=== PATIENT | female | born 1985 | race American Indian/Alaskan Native ===

== ENCOUNTER 2016-10-20 11:40 | Emergency (ER) | payer MEDICAID, OTHER ==
[~2016-10-20] VITALS: Ht 160 cm; Wt 114.0 kg
[~2016-10-20 11:40] MED LIST: HYDR-3240 PO
[2016-10-20] MEDS ORDERED: LORazepam 2 MG/ML, 1ML IVPush ONE (12:30)
[2016-10-20] MEDS ORDERED: SODIUM CHLORIDE 0.9% 1,000ML IVBOLUS ONE (12:30)
[2016-10-20] MEDS ORDERED: SODIUM CHLORIDE FLUSH 10ML SYR IVF ONE (12:30)
[2016-10-20 12:36] LABS: HEMATOCRIT 39.3 % (34.6-47.8); HEMOGLOBIN 13.1 g/dL (11.7-16.4); WHITE BLOOD COUNT 6.7 x10^3/uL (3.4-10)
[2016-10-20 12:48] LABS: BLOOD UREA NITROGEN 11 mg/dL (7-18)
[2016-10-20 12:55] LABS: IS PT STATUS REG ER OR PRE ER? YES
[2016-10-20] MEDS ORDERED: LORazepam 2 MG/ML, 1ML ONE (13:10)
[2016-10-20] MEDS ORDERED: MAALOX/HYOSCYAMINE/LIDOCAINE 45 ML BTL PO ONE (14:00)
[2016-10-20] MEDS ORDERED: ONDANSETRON 2MG/ML, 2ML IVPush ONE (14:00)
[2016-10-20] MEDS ORDERED: ONDANSETRON 2MG/ML, 2ML ONE (14:09)
[2016-10-20] MEDS ORDERED: MAALOX/HYOSCYAMINE/LIDOCAINE 45 ML BTL ONE (14:09)
[2016-10-20 14:47] VITALS: BP 115/74
== END 2016-10-20 15:31 | disposition home or self-care (01) ==
LOC: ED 14:06
DX: K29.01 Acute gastritis with bleeding (principal); F41.9 Anxiety disorder, unspecified
CPT/HCPCS: 36415; 71010; 80048; 82040; 84484; 84703; 85025; 85379; 93005; 96361; 96374; 96375; 99285; J2060; J2405; J7030

== ENCOUNTER 2017-02-27 10:33 | Emergency (ER) | payer OTHER ==
[~2017-02-27] VITALS: Ht 160 cm; Wt 109.1 kg
[2017-02-27] MEDS ORDERED: KETOROLAC 30 MG/1 ML IM ONE (12:30)
[2017-02-27 12:49] LABS: RAPID INFLUENZA A Negative (Negative); RAPID INFLUENZA B Negative (Negative)
[2017-02-27 12:51] LABS: ALBUMIN 3.4 g/dL (3.4-5.0); ANION GAP 10 mmol/L (5-15); CALCIUM 8.4 mg/dL (8.5-10.1); CHLORIDE 105 mmol/L (98-107); CREATININE 0.48 mg/dL (0.55-1.02)
[2017-02-27 12:53] LABS: BASOPHILS # (AUTO) 0.01 x10^3/uL (0-0.1); BASOPHILS % (AUTO) 0 % (0-1); EOSINOPHILS # (AUTO) 0.02 x10^3/uL (0-0.4); EOSINOPHILS % (AUTO) 1 % (1-7); LYMPHOCYTES # (AUTO) 0.75 x10^3/uL (1-3.4); LYMPHOCYTES % (AUTO) 20 % (22-44); MD NO; MEAN CORPUSCULAR HEMOGLOBIN 31.2 pg (27.0-34.8); MEAN CORPUSCULAR HGB CONC 33.8 g/dL (32.4-35.8); MEAN CORPUSCULAR VOLUME 92.1 fL (80-100); MEAN PLATELET VOLUME 8.4 fL (7.4-10.4); MONOCYTES # (AUTO) 0.17 x10^3/uL (0.2-0.8); MONOCYTES % (AUTO) 5 % (2-9); NEUTROPHILS # (AUTO) 2.82 x10^3/uL (1.8-6.8); NEUTROPHILS % (AUTO) 75 % (42-75); PLATELET COUNT 139 x10^3/uL (130-400); RED BLOOD COUNT 4.34 x10^6/uL (3.82-5.3); RED CELL DISTRIBUTION WIDTH 16.2 % (9.6-15.2)
[2017-02-27] MEDS ORDERED: KETOROLAC 30 MG/1 ML ONE (13:09)
[2017-02-27 13:14] VITALS: BP 119/75
== END 2017-02-27 13:58 | disposition home or self-care (01) ==
LOC: ED 13:24
DX: B34.9 Viral infection, unspecified (principal); M94.0 Chondrocostal junction syndrome [Tietze]; Z90.49 Acquired absence of other specified parts of digestive tract
CPT/HCPCS: 36415; 71046; 80048; 82040; 85025; 87400; 93005; 96372; 99285; J1885

== ENCOUNTER 2017-12-10 15:08 | Inpatient (IN) | payer MEDICAID, OTHER ==
[~2017-12-10] VITALS: Ht 160 cm; Wt 126.9 kg
[2017-12-10] MEDS ORDERED: SODIUM CHLORIDE FLUSH 10ML SYR IVF ONE (15:30)
[2017-12-10] MEDS ORDERED: FURO20TA3 PO (15:54)
[2017-12-10] MEDS ORDERED: NADO20TA PO (15:55)
[2017-12-10] MEDS ORDERED: LACT20SO13 PO (15:55)
[2017-12-10] MEDS ORDERED: OMEP10CA4 PO (15:56)
[2017-12-10] MEDS ORDERED: PHOS250T PO (15:56)
[2017-12-10] MEDS ORDERED: RIFA550T4 PO (15:58)
[2017-12-10] MEDS ORDERED: CHOL100015 PO (15:58)
[2017-12-10] MEDS ORDERED: SPIR25TA5 PO (15:59)
[2017-12-10 16:04] LABS: ALBUMIN 2.2 g/dL (3.4-5.0); ANION GAP 7 mmol/L (5-15); CALCIUM 8.5 mg/dL (8.5-10.1); CHLORIDE 109 mmol/L (98-107); INTERNATIONAL NORMALIZED RATIO 1.76 (0.93-1.1); PROTHROMBIN TIME 17.9 Seconds (9.6-11.5)
[2017-12-10 16:08] LABS: ALANINE AMINOTRANSFERASE 25 U/L (12-78); ALKALINE PHOSPHATASE 280 U/L (45-117); BILIRUBIN, DIRECT 4.8 mg/dL (0.1-0.2); BILIRUBIN,INDIRECT 1.5 mg/dL (0.0-2.0); BILIRUBIN,TOTAL 6.3 mg/dL (0.2-1.0); CREATININE 0.66 mg/dL (0.55-1.02); TOTAL PROTEIN 7.3 g/dL (6.4-8.2)
[2017-12-10 16:23] LABS: MEAN CORPUSCULAR HEMOGLOBIN 37.3 pg (27.0-34.8); MEAN CORPUSCULAR HGB CONC 33.2 g/dL (32.4-35.8); MEAN CORPUSCULAR VOLUME 112.2 fL (80-100); MEAN PLATELET VOLUME 9.1 fL (7.4-10.4); PLATELET COUNT 100 x10^3/uL (130-400); RED BLOOD COUNT 2.59 x10^6/uL (3.82-5.3); RED CELL DISTRIBUTION WIDTH 24.1 % (9.6-15.2)
[2017-12-10 16:41] LABS: MD YES
[2017-12-10 16:46] LABS: BAND#(MANUAL) 0.17 x10^3/uL; BANDS%(MANUAL) 2 % (0-7); BASOS#(MANUAL) 0.08 x10^3/uL (0-0.1); BASOS% (MANUAL) 1 % (0-1); EOS#(MANUAL) 0.08 x10^3/uL (0.0-0.4); EOS% (MANUAL) 1 % (1-7); LYMPH#(MANUAL) 1.83 x10^3/uL (1-3.4); LYMPHS% (MANUAL) 22 % (22-44); MONOS% (MANUAL) 6 % (2-9); SEG#(MANUAL) 5.64 x10^3/uL (1.8-6.8); SEGS% (MANUAL) 68 % (42-75)
[2017-12-10 16:48] LABS: ANISOCYTOSIS 2+; POLYCHROMASIA 1+
[2017-12-10 16:49] LABS: <PLATELET ESTIMATE> DECREASED; <PLT MORPHOLOGY> NORMAL PLT MORPH
[2017-12-10 16:52] LABS: HCG UR SG 1.009 (1.003-1.030)
[2017-12-10 17:00] LABS: MICROSCOPIC INDICATED
[2017-12-10] MEDS ORDERED: FUROSEMIDE 20 MG/2 ML IV ONE (17:00)
[2017-12-10 17:02] LABS: CULTURE INDICATED? YES
[2017-12-10] MEDS ORDERED: FUROSEMIDE 20 MG/2 ML ONE (17:18)
[2017-12-10 20:16] VITALS: BP 108/67
[2017-12-10] MEDS ORDERED: DOCUSATE 100 MG CAPSULE PO PRN (20:30)
[2017-12-10] MEDS ORDERED: ACETAMINOPHEN 325 MG TABLET PO PRN (20:30)
[2017-12-10] MEDS ORDERED: ONDANSETRON ODT 4 MG PO PRN (20:30)
[2017-12-10] MEDS ORDERED: DIPHENHYDRAMINE 25 MG CAPSULE PO PRN (20:30)
[2017-12-10] MEDS: ENOXAPARIN 40 MG/0.4 ML SQ SCH (22:29)
[2017-12-10] MEDS: OXYcodone IR 5MG TABLET PO PRN (22:29)
[2017-12-10] MEDS: RIFAXIMIN 550 MG TABLET PO SCH (22:29)
[2017-12-11 03:33] VITALS: BP 109/68
[2017-12-11 05:06] LABS: MEAN CORPUSCULAR HEMOGLOBIN 38.9 pg (27.0-34.8); MEAN CORPUSCULAR HGB CONC 34.2 g/dL (32.4-35.8); MEAN PLATELET VOLUME 8.9 fL (7.4-10.4); PLATELET COUNT 93 x10^3/uL (130-400); RED BLOOD COUNT 2.56 x10^6/uL (3.82-5.3); RED CELL DISTRIBUTION WIDTH 24.5 % (9.6-15.2)
[2017-12-11 05:18] LABS: ALBUMIN 2.2 g/dL (3.4-5.0); ANION GAP 7 mmol/L (5-15); CALCIUM 8.1 mg/dL (8.5-10.1); CHLORIDE 108 mmol/L (98-107)
[2017-12-11 05:23] LABS: ALANINE AMINOTRANSFERASE 27 U/L (12-78); ALKALINE PHOSPHATASE 223 U/L (45-117); BILIRUBIN,TOTAL 6.4 mg/dL (0.2-1.0); TOTAL PROTEIN 7.3 g/dL (6.4-8.2)
[2017-12-11] MEDS: METOPROLOL TARTRATE 25 MG TABLET PO SCH ×2 (05:23→17:52)
[2017-12-11 05:34] LABS: BASOPHILS # (AUTO) 0.04 x10^3/uL (0-0.1); BASOPHILS % (AUTO) 1 % (0-1); EOSINOPHILS # (AUTO) 0.25 x10^3/uL (0-0.4); EOSINOPHILS % (AUTO) 4 % (1-7); LYMPHOCYTES # (AUTO) 1.75 x10^3/uL (1-3.4); LYMPHOCYTES % (AUTO) 25 % (22-44); MD SCAN; MONOCYTES # (AUTO) 0.75 x10^3/uL (0.2-0.8); MONOCYTES % (AUTO) 11 % (2-9); NEUTROPHILS # (AUTO) 4.27 x10^3/uL (1.8-6.8); NEUTROPHILS % (AUTO) 61 % (42-75)
[2017-12-11] MEDS ORDERED: FUROSEMIDE 20 MG/2 ML IV SCH (07:30)
[2017-12-11 07:48] VITALS: BP 111/46
[2017-12-11] MEDS ORDERED: ERGOCALCIFEROL 50,000 UNIT CAPSULE PO SCH (09:00)
[2017-12-11] MEDS ORDERED: FUROSEMIDE 20 MG TABLET PO SCH (09:00)
[2017-12-11] MEDS: OMEPRAZOLE 20 MG CAPSULE.DR PO SCH (09:39)
[2017-12-11] MEDS: SPIRONOLACTONE 25 MG TABLET PO SCH (09:39)
[2017-12-11] MEDS: LACTULOSE 20 GM/30 ML UDC PO SCH (09:41)
[2017-12-11] MEDS: NEUTRA PHOS K 250 MG TABLET PO SCH (09:41)
[2017-12-11] MEDS: RIFAXIMIN 550 MG TABLET PO SCH ×2 (09:42→22:59)
[2017-12-11] MEDS: OXYcodone IR 5MG TABLET PO PRN ×2 (09:42→14:43)
[2017-12-11 17:41] VITALS: BP 116/69
[2017-12-11] MEDS: AMPICILLIN/SULBACTAM 1,500 MG in SODIUM CHLORIDE 0.9% 50 ML IV SCH (17:52)
[2017-12-11] MEDS: FUROSEMIDE 40 MG/4 ML IV SCH (17:52)
[2017-12-11] MEDS: GABAPENTIN 300 MG CAPSULE PO SCH (22:59)
[2017-12-11] MEDS: ENOXAPARIN 40 MG/0.4 ML SQ SCH (23:02)
[2017-12-12] MEDS: AMPICILLIN/SULBACTAM 1,500 MG in SODIUM CHLORIDE 0.9% 50 ML IV SCH ×4 (00:37→20:28)
[2017-12-12 03:45] VITALS: BP 94/53
[2017-12-12 04:52] LABS: MEAN CORPUSCULAR HGB CONC 33.9 g/dL (32.4-35.8); MEAN PLATELET VOLUME 9.4 fL (7.4-10.4); PLATELET COUNT 83 x10^3/uL (130-400); RED BLOOD COUNT 2.03 x10^6/uL (3.82-5.3); RED CELL DISTRIBUTION WIDTH 23.9 % (9.6-15.2)
[2017-12-12 05:00] LABS: ANION GAP 8 mmol/L (5-15); CALCIUM 8.1 mg/dL (8.5-10.1); CHLORIDE 109 mmol/L (98-107); CREATININE 0.76 mg/dL (0.55-1.02)
[2017-12-12 05:24] LABS: BASOPHILS # (AUTO) 0.04 x10^3/uL (0-0.1); BASOPHILS % (AUTO) 1 % (0-1); EOSINOPHILS # (AUTO) 0.19 x10^3/uL (0-0.4); EOSINOPHILS % (AUTO) 3 % (1-7); LYMPHOCYTES # (AUTO) 1.37 x10^3/uL (1-3.4); LYMPHOCYTES % (AUTO) 24 % (22-44); MD SCAN; MONOCYTES # (AUTO) 0.59 x10^3/uL (0.2-0.8); MONOCYTES % (AUTO) 10 % (2-9); NEUTROPHILS # (AUTO) 3.48 x10^3/uL (1.8-6.8); NEUTROPHILS % (AUTO) 61 % (42-75)
[2017-12-12] MEDS: METOPROLOL TARTRATE 25 MG TABLET PO SCH ×3 (06:16→18:09)
[2017-12-12 06:20] VITALS: BP 107/62
[2017-12-12 07:00] VITALS: BP 119/54
[2017-12-12] MEDS: OMEPRAZOLE 20 MG CAPSULE.DR PO SCH (09:00)
[2017-12-12] MEDS: GABAPENTIN 300 MG CAPSULE PO SCH ×3 (09:00→20:14)
[2017-12-12] MEDS: FUROSEMIDE 40 MG/4 ML IV SCH ×2 (09:00→16:20)
[2017-12-12] MEDS: LACTULOSE 20 GM/30 ML UDC PO SCH (09:01)
[2017-12-12] MEDS: NEUTRA PHOS K 250 MG TABLET PO SCH (09:01)
[2017-12-12] MEDS: RIFAXIMIN 550 MG TABLET PO SCH ×2 (09:01→20:14)
[2017-12-12] MEDS: SPIRONOLACTONE 25 MG TABLET PO SCH (09:14)
[2017-12-12 12:26] LABS: FREE T4 (FREE THYROXINE) 1.23 ng/dL (0.76-1.46); THYROID STIMULATING HORMONE 9.58 mIU/L (0.358-3.740)
[2017-12-12 14:10] LABS: OCCULT BLOOD NEGATIVE (NEGATIVE)
[2017-12-12] MEDS ORDERED: MAGNESIUM SULFATE PMX 2GM/50ML 50 ML IV ONE (14:30)
[2017-12-12 15:37] LABS: INTERNATIONAL NORMALIZED RATIO 1.69 (0.93-1.1); PROTHROMBIN TIME 17.2 Seconds (9.6-11.5)
[2017-12-12 18:11] VITALS: BP 93/52
[2017-12-12 19:20] VITALS: BP 101/60
[2017-12-12] MEDS: OXYcodone IR 5MG TABLET PO PRN (20:18)
[2017-12-13 01:58] VITALS: BP 101/61
[2017-12-13] MEDS: AMPICILLIN/SULBACTAM 1,500 MG in SODIUM CHLORIDE 0.9% 50 ML IV SCH ×4 (01:59→20:57)
[2017-12-13] MEDS: METOPROLOL TARTRATE 25 MG TABLET PO SCH ×2 (05:59→18:00)
[2017-12-13] MEDS: LEVOTHYROXINE 50 MCG TABLET PO SCH (05:59)
[2017-12-13 06:55] VITALS: BP 99/59
[2017-12-13] MEDS: FUROSEMIDE 40 MG/4 ML IV SCH ×2 (07:42→16:39)
[2017-12-13] MEDS: OMEPRAZOLE 20 MG CAPSULE.DR PO SCH (07:42)
[2017-12-13 08:52] LABS: ALANINE AMINOTRANSFERASE 23 U/L (12-78); ALBUMIN 1.8 g/dL (3.4-5.0); ANION GAP 8 mmol/L (5-15); CALCIUM 8.1 mg/dL (8.5-10.1); CHLORIDE 108 mmol/L (98-107); CREATININE 0.83 mg/dL (0.55-1.02); MEAN CORPUSCULAR HEMOGLOBIN 38.3 pg (27.0-34.8); MEAN CORPUSCULAR VOLUME 112.8 fL (80-100); RED BLOOD COUNT 2.03 x10^6/uL (3.82-5.3); RED CELL DISTRIBUTION WIDTH 23.6 % (9.6-15.2)
[2017-12-13 08:54] LABS: ALKALINE PHOSPHATASE 144 U/L (45-117); BILIRUBIN,TOTAL 6.3 mg/dL (0.2-1.0); TOTAL PROTEIN 5.9 g/dL (6.4-8.2)
[2017-12-13 09:06] LABS: MEAN PLATELET VOLUME 9.4 fL (7.4-10.4); PLATELET COUNT 90 x10^3/uL (130-400)
[2017-12-13 09:08] LABS: BASOPHILS # (AUTO) 0.02 x10^3/uL (0-0.1); BASOPHILS % (AUTO) 0 % (0-1); EOSINOPHILS # (AUTO) 0.25 x10^3/uL (0-0.4); EOSINOPHILS % (AUTO) 5 % (1-7); LYMPHOCYTES # (AUTO) 1.33 x10^3/uL (1-3.4); LYMPHOCYTES % (AUTO) 24 % (22-44); MD SCAN; MONOCYTES # (AUTO) 0.53 x10^3/uL (0.2-0.8); MONOCYTES % (AUTO) 9 % (2-9); NEUTROPHILS % (AUTO) 62 % (42-75)
[2017-12-13] MEDS: GABAPENTIN 300 MG CAPSULE PO SCH ×3 (09:45→20:57)
[2017-12-13] MEDS: LACTULOSE 20 GM/30 ML UDC PO SCH (09:45)
[2017-12-13] MEDS: RIFAXIMIN 550 MG TABLET PO SCH ×2 (09:45→20:57)
[2017-12-13] MEDS: SPIRONOLACTONE 25 MG TABLET PO SCH (09:45)
[2017-12-13] MEDS: NEUTRA PHOS K 250 MG TABLET PO SCH (09:45)
[2017-12-13 13:00] VITALS: BP 100/58
[2017-12-13 19:18] VITALS: BP 109/65
[2017-12-13] MEDS: OXYcodone IR 5MG TABLET PO PRN (21:22)
[2017-12-14] MEDS: AMPICILLIN/SULBACTAM 1,500 MG in SODIUM CHLORIDE 0.9% 50 ML IV SCH ×4 (02:29→19:45)
[2017-12-14 02:33] VITALS: BP 108/53
[2017-12-14 05:08] LABS: CHLORIDE 107 mmol/L (98-107)
[2017-12-14 05:15] LABS: ALANINE AMINOTRANSFERASE 20 U/L (12-78); ALBUMIN 1.8 g/dL (3.4-5.0); ALKALINE PHOSPHATASE 145 U/L (45-117); ANION GAP 5 mmol/L (5-15); BILIRUBIN,TOTAL 6.4 mg/dL (0.2-1.0); CALCIUM 8.1 mg/dL (8.5-10.1); TOTAL PROTEIN 5.9 g/dL (6.4-8.2)
[2017-12-14 05:29] LABS: MEAN CORPUSCULAR HGB CONC 33.8 g/dL (32.4-35.8); MEAN CORPUSCULAR VOLUME 112.6 fL (80-100); RED BLOOD COUNT 2.01 x10^6/uL (3.82-5.3); RED CELL DISTRIBUTION WIDTH 23.3 % (9.6-15.2)
[2017-12-14 05:54] LABS: BASOPHILS # (AUTO) 0.03 x10^3/uL (0-0.1); BASOPHILS % (AUTO) 1 % (0-1); EOSINOPHILS # (AUTO) 0.26 x10^3/uL (0-0.4); EOSINOPHILS % (AUTO) 4 % (1-7); LYMPHOCYTES # (AUTO) 1.38 x10^3/uL (1-3.4); LYMPHOCYTES % (AUTO) 22 % (22-44); MD SCAN; MEAN PLATELET VOLUME 9.4 fL (7.4-10.4); MONOCYTES # (AUTO) 0.54 x10^3/uL (0.2-0.8); MONOCYTES % (AUTO) 9 % (2-9); NEUTROPHILS # (AUTO) 4.07 x10^3/uL (1.8-6.8); NEUTROPHILS % (AUTO) 65 % (42-75); PLATELET COUNT 88 x10^3/uL (130-400)
[2017-12-14 06:13] VITALS: BP 112/63
[2017-12-14] MEDS: LEVOTHYROXINE 50 MCG TABLET PO SCH (06:13)
[2017-12-14] MEDS: METOPROLOL TARTRATE 25 MG TABLET PO SCH ×2 (06:13→18:00)
[2017-12-14 07:50] VITALS: BP 110/64
[2017-12-14] MEDS: FUROSEMIDE 40 MG/4 ML IV SCH ×2 (08:02→17:01)
[2017-12-14] MEDS: OMEPRAZOLE 20 MG CAPSULE.DR PO SCH (08:02)
[2017-12-14] MEDS: GABAPENTIN 300 MG CAPSULE PO SCH ×3 (08:44→19:53)
[2017-12-14] MEDS: RIFAXIMIN 550 MG TABLET PO SCH ×2 (08:44→19:53)
[2017-12-14] MEDS: NEUTRA PHOS K 250 MG TABLET PO SCH (08:44)
[2017-12-14] MEDS: LACTULOSE 20 GM/30 ML UDC PO SCH (08:44)
[2017-12-14] MEDS: SPIRONOLACTONE 25 MG TABLET PO SCH (08:45)
[2017-12-14 13:15] VITALS: BP 105/52
[2017-12-14] MEDS: OXYcodone IR 5MG TABLET PO PRN (19:54)
[2017-12-14 20:00] VITALS: BP 106/61
[2017-12-15 02:06] VITALS: BP 112/56
[2017-12-15] MEDS: AMPICILLIN/SULBACTAM 1,500 MG in SODIUM CHLORIDE 0.9% 50 ML IV SCH ×2 (02:08→08:25)
[2017-12-15 05:17] VITALS: BP 109/52
[2017-12-15] MEDS: LEVOTHYROXINE 50 MCG TABLET PO SCH (05:18)
[2017-12-15] MEDS: METOPROLOL TARTRATE 25 MG TABLET PO SCH (05:19)
[2017-12-15 08:20] VITALS: BP 103/59
[2017-12-15] MEDS: NEUTRA PHOS K 250 MG TABLET PO SCH (08:24)
[2017-12-15] MEDS: LACTULOSE 20 GM/30 ML UDC PO SCH (08:25)
[2017-12-15] MEDS: GABAPENTIN 300 MG CAPSULE PO SCH (08:25)
[2017-12-15] MEDS: SPIRONOLACTONE 25 MG TABLET PO SCH (08:25)
[2017-12-15] MEDS: FUROSEMIDE 40 MG/4 ML IV SCH (08:25)
[2017-12-15] MEDS: RIFAXIMIN 550 MG TABLET PO SCH (08:25)
[2017-12-15 08:31] LABS: ALANINE AMINOTRANSFERASE 19 U/L (12-78); ALBUMIN 1.8 g/dL (3.4-5.0); ANION GAP 10 mmol/L (5-15); CALCIUM 7.9 mg/dL (8.5-10.1); CHLORIDE 105 mmol/L (98-107); CREATININE 0.71 mg/dL (0.55-1.02)
[2017-12-15 08:32] LABS: MEAN CORPUSCULAR HEMOGLOBIN 37.5 pg (27.0-34.8); MEAN CORPUSCULAR HGB CONC 33.4 g/dL (32.4-35.8); MEAN CORPUSCULAR VOLUME 112.1 fL (80-100); PLATELET COUNT 103 x10^3/uL (130-400); RED BLOOD COUNT 2.11 x10^6/uL (3.82-5.3); RED CELL DISTRIBUTION WIDTH 22.3 % (9.6-15.2)
[2017-12-15 08:34] LABS: ALKALINE PHOSPHATASE 170 U/L (45-117); BILIRUBIN,TOTAL 5.7 mg/dL (0.2-1.0); TOTAL PROTEIN 6.2 g/dL (6.4-8.2)
[2017-12-15] MEDS: OMEPRAZOLE 20 MG CAPSULE.DR PO SCH (08:39)
[2017-12-15 08:47] LABS: BASOPHILS # (AUTO) 0.02 x10^3/uL (0-0.1); BASOPHILS % (AUTO) 0 % (0-1); EOSINOPHILS # (AUTO) 0.26 x10^3/uL (0-0.4); EOSINOPHILS % (AUTO) 4 % (1-7); LYMPHOCYTES # (AUTO) 1.33 x10^3/uL (1-3.4); LYMPHOCYTES % (AUTO) 20 % (22-44); MD SCAN; MONOCYTES # (AUTO) 0.53 x10^3/uL (0.2-0.8); MONOCYTES % (AUTO) 8 % (2-9); NEUTROPHILS # (AUTO) 4.46 x10^3/uL (1.8-6.8); NEUTROPHILS % (AUTO) 68 % (42-75)
[2017-12-15] MEDS ORDERED: DOXY100T PO (11:16)
[2017-12-15] MEDS ORDERED: LEVO50TA PO (11:16)
[2017-12-15] MEDS ORDERED: AMOX1TAB64 PO (11:16)
[2017-12-15] MEDS ORDERED: NYST15PO9 TP (11:18)
[2017-12-15] MEDS ORDERED: FURO40TA6 PO (11:19)
[2017-12-15] MEDS ORDERED: POTA10CA PO (16:55)
== END 2017-12-15 12:00 | disposition home or self-care (01) | DRG 438 ==
LOC: ED 17:05 → EDIP 18:56 → 3NW 20:00
PROVIDERS: ADMIT Hospitalist; ATTEND Hospitalist
DX: K85.20 Alcohol induced acute pancreatitis without necrosis or infection (principal); K65.9 Peritonitis, unspecified; D68.9 Coagulation defect, unspecified; E44.0 Moderate protein-calorie malnutrition; I85.00 Esophageal varices without bleeding; K76.6 Portal hypertension; Z68.42 Body mass index [BMI] 45.0-49.9, adult; I50.32 Chronic diastolic (congestive) heart failure; R14.0 Abdominal distension (gaseous); D50.9 Iron deficiency anemia, unspecified; D53.9 Nutritional anemia, unspecified; D69.6 Thrombocytopenia, unspecified; K70.10 Alcoholic hepatitis without ascites; E66.01 Morbid (severe) obesity due to excess calories; F10.20 Alcohol dependence, uncomplicated; K70.31 Alcoholic cirrhosis of liver with ascites; M79.3 Panniculitis, unspecified; Z80.8 Family history of malignant neoplasm of other organs or systems; Z82.49 Family history of ischemic heart disease and other diseases of the circulatory system; Z83.3 Family history of diabetes mellitus; Z90.49 Acquired absence of other specified parts of digestive tract
CPT/HCPCS: 36415; 74181; 76700; 80048; 80053; 80074; 81001; 81025; 81256; 82247; 82248; 82272; 82306; 82607; 82728; 82784; 83540; 83550; 83690; 83735; 84100; 84439; 84443; 84478; 85014; 85018; 85025; 85610; 85730; 86850; 86900; 87077; 87086; 93005; 93306; 93970; 99285; G0378; J1650; J1940; J0295; J3475

== ENCOUNTER 2017-12-23 10:33 | Inpatient (IN) | payer MEDICAID ==
[~2017-12-23] VITALS: Ht 160 cm; Wt 118.2 kg
[~2017-12-23 10:33] MED LIST changes: +AMOX1TAB64 PO; +CHOL100015 PO; +DOXY100T PO; +FURO20TA3 PO; +FURO40TA6 PO; +LACT20SO13 PO; +LEVO50TA PO; +NADO20TA PO; +NYST15PO9 TP; +OMEP10CA4 PO; +PHOS250T PO; +POTA10CA PO; +RIFA550T4 PO; +SPIR25TA5 PO
[2017-12-23 13:29] LABS: MEAN PLATELET VOLUME 8.6 fL (7.4-10.4); PLATELET COUNT 113 x10^3/uL (130-400); RED BLOOD COUNT 2.37 x10^6/uL (3.82-5.3); RED CELL DISTRIBUTION WIDTH 18.5 % (9.6-15.2)
[2017-12-23 13:34] LABS: ANION GAP 7 mmol/L (5-15); CALCIUM 8.2 mg/dL (8.5-10.1); CHLORIDE 112 mmol/L (98-107)
[2017-12-23 13:39] LABS: ALANINE AMINOTRANSFERASE 22 U/L (12-78); ALKALINE PHOSPHATASE 149 U/L (45-117); BILIRUBIN,TOTAL 6.1 mg/dL (0.2-1.0); CREATININE 0.54 mg/dL (0.55-1.02); TOTAL PROTEIN 7.1 g/dL (6.4-8.2)
[2017-12-23 13:57] LABS: BASOPHILS # (AUTO) 0.07 x10^3/uL (0-0.1); BASOPHILS % (AUTO) 1 % (0-1); EOSINOPHILS # (AUTO) 0.29 x10^3/uL (0-0.4); EOSINOPHILS % (AUTO) 6 % (1-7); LYMPHOCYTES # (AUTO) 1.13 x10^3/uL (1-3.4); LYMPHOCYTES % (AUTO) 23 % (22-44); MD SCAN; MONOCYTES # (AUTO) 0.51 x10^3/uL (0.2-0.8); MONOCYTES % (AUTO) 10 % (2-9); NEUTROPHILS # (AUTO) 3.01 x10^3/uL (1.8-6.8); NEUTROPHILS % (AUTO) 60 % (42-75)
[2017-12-23 13:59] LABS: CULTURE INDICATED? YES; MICROSCOPIC INDICATED
[2017-12-23] MEDS ORDERED: SODIUM CHLORIDE FLUSH 10ML SYR IVF ONE (14:00)
[2017-12-23] MEDS ORDERED: FUROSEMIDE 40 MG/4 ML IV ONE (14:00)
[2017-12-23] MEDS ORDERED: LABETALOL 5MG/ML, 20ML IVPush PRN (15:00)
[2017-12-23] MEDS ORDERED: hydrALAzine 20 MG/ML, 1ML IVPush PRN (15:00)
[2017-12-23] MEDS ORDERED: ONDANSETRON 2MG/ML, 2ML IVPush PRN (15:00)
[2017-12-23] MEDS ORDERED: ONDANSETRON ODT 4 MG PO PRN (15:00)
[2017-12-23] MEDS ORDERED: FUROSEMIDE 40 MG/4 ML ONE (15:19)
[2017-12-23 15:39] LABS: INTERNATIONAL NORMALIZED RATIO 1.74 (0.93-1.1); PROTHROMBIN TIME 17.7 Seconds (9.6-11.5)
[2017-12-23] MEDS ORDERED: ERGOCALCIFEROL 50,000 UNIT CAPSULE PO SCH (16:30)
[2017-12-23 16:54] VITALS: BP 122/74
[2017-12-23] MEDS: LACTULOSE 20 GM/30 ML UDC PO SCH (17:00)
[2017-12-23] MEDS: METOPROLOL TARTRATE 25 MG TABLET PO SCH (17:01)
[2017-12-23 19:42] VITALS: BP 116/74
[2017-12-23] MEDS: NYSTATIN TOPICAL POWDER 15GM TP SCH (21:00)
[2017-12-23] MEDS: RIFAXIMIN 550 MG TABLET PO SCH (22:41)
[2017-12-24 01:36] VITALS: BP 93/49
[2017-12-24 04:45] LABS: MEAN CORPUSCULAR HGB CONC 34.1 g/dL (32.4-35.8); MEAN CORPUSCULAR VOLUME 111.5 fL (80-100); MEAN PLATELET VOLUME 8.5 fL (7.4-10.4); PLATELET COUNT 110 x10^3/uL (130-400); RED BLOOD COUNT 2.32 x10^6/uL (3.82-5.3); RED CELL DISTRIBUTION WIDTH 18.8 % (9.6-15.2)
[2017-12-24 04:52] LABS: ALANINE AMINOTRANSFERASE 18 U/L (12-78); ANION GAP 7 mmol/L (5-15); CALCIUM 8.2 mg/dL (8.5-10.1); CHLORIDE 114 mmol/L (98-107); CREATININE 0.56 mg/dL (0.55-1.02)
[2017-12-24 04:55] LABS: ALKALINE PHOSPHATASE 132 U/L (45-117); BILIRUBIN,TOTAL 6.5 mg/dL (0.2-1.0); TOTAL PROTEIN 6.6 g/dL (6.4-8.2)
[2017-12-24 06:01] LABS: BASOPHILS # (AUTO) 0.01 x10^3/uL (0-0.1); BASOPHILS % (AUTO) 0 % (0-1); EOSINOPHILS # (AUTO) 0.35 x10^3/uL (0-0.4); EOSINOPHILS % (AUTO) 6 % (1-7); LYMPHOCYTES # (AUTO) 1.49 x10^3/uL (1-3.4); LYMPHOCYTES % (AUTO) 24 % (22-44); MONOCYTES # (AUTO) 0.57 x10^3/uL (0.2-0.8); MONOCYTES % (AUTO) 9 % (2-9); NEUTROPHILS # (AUTO) 3.84 x10^3/uL (1.8-6.8); NEUTROPHILS % (AUTO) 61 % (42-75)
[2017-12-24 06:08] LABS: MD SCAN
[2017-12-24] MEDS ORDERED: LEVOTHYROXINE 25 MCG TABLET ONE (06:12)
[2017-12-24 06:16] VITALS: BP 98/57
[2017-12-24] MEDS: LEVOTHYROXINE 50 MCG TABLET PO SCH (06:19)
[2017-12-24] MEDS: METOPROLOL TARTRATE 25 MG TABLET PO SCH ×2 (06:20→18:00)
[2017-12-24] MEDS: PANTOPROZOLE 40MG TABLET PO SCH (07:59)
[2017-12-24] MEDS: SPIRONOLACTONE 100 MG TABLET PO SCH (07:59)
[2017-12-24] MEDS: RIFAXIMIN 550 MG TABLET PO SCH ×2 (07:59→20:50)
[2017-12-24] MEDS: LACTULOSE 20 GM/30 ML UDC PO SCH (07:59)
[2017-12-24] MEDS: POTASSIUM CHLORIDE 10 MEQ TABLET.ER PO SCH (07:59)
[2017-12-24] MEDS ORDERED: FUROSEMIDE 40 MG TABLET PO SCH (09:00)
[2017-12-24] MEDS ORDERED: OMEPRAZOLE 20 MG PO SCH (09:00)
[2017-12-24] MEDS: NYSTATIN TOPICAL POWDER 15GM TP SCH ×2 (09:00→20:50)
[2017-12-24 12:46] VITALS: BP 102/63
[2017-12-24] MEDS ORDERED: OMNIPAQUE 350 MG/ML, 150 ML BOTTLE ONE (18:05)
[2017-12-24] MEDS: FUROSEMIDE 40 MG/4 ML IV SCH (18:22)
[2017-12-24 19:53] VITALS: BP 103/49
[2017-12-25 01:28] VITALS: BP 99/61
[2017-12-25 06:17] VITALS: BP 90/52
[2017-12-25] MEDS: LEVOTHYROXINE 50 MCG TABLET PO SCH (06:18)
[2017-12-25] MEDS: METOPROLOL TARTRATE 25 MG TABLET PO SCH (06:18)
[2017-12-25 07:50] VITALS: BP 98/55
[2017-12-25] MEDS: PANTOPROZOLE 40MG TABLET PO SCH (07:50)
[2017-12-25] MEDS: FUROSEMIDE 40 MG/4 ML IV SCH (07:57)
[2017-12-25] MEDS ORDERED: SPIRONOLACTONE 25 MG TABLET ONE (08:42)
[2017-12-25 08:46] VITALS: BP 106/64
[2017-12-25] MEDS: POTASSIUM CHLORIDE 10 MEQ TABLET.ER PO SCH (08:48)
[2017-12-25] MEDS: RIFAXIMIN 550 MG TABLET PO SCH (08:48)
[2017-12-25] MEDS: SPIRONOLACTONE 100 MG TABLET PO SCH (08:48)
[2017-12-25] MEDS: LACTULOSE 20 GM/30 ML UDC PO SCH (08:49)
[2017-12-25] MEDS: NYSTATIN TOPICAL POWDER 15GM TP SCH (08:49)
== END 2017-12-25 14:05 | disposition home or self-care (01) | DRG 432 ==
LOC: ED 14:05 → EDIP 14:24 → 4NOR 16:08 → DCLOUNGE 12-25 13:20
PROVIDERS: ADMIT Internal Medicine; ATTEND Internal Medicine
DX: K70.10 Alcoholic hepatitis without ascites (principal); K85.90 Acute pancreatitis without necrosis or infection, unspecified; E44.0 Moderate protein-calorie malnutrition; Z68.42 Body mass index [BMI] 45.0-49.9, adult; I50.30 Unspecified diastolic (congestive) heart failure; K76.6 Portal hypertension; K86.0 Alcohol-induced chronic pancreatitis; N30.90 Cystitis, unspecified without hematuria; D53.9 Nutritional anemia, unspecified; D69.6 Thrombocytopenia, unspecified; E66.01 Morbid (severe) obesity due to excess calories; F10.21 Alcohol dependence, in remission
CPT/HCPCS: 36415; 71045; 74177; 76700; 80053; 81001; 83690; 83735; 83880; 84100; 85025; 85610; 87086; 93005; 99285; G0378; J1940; Q9967

== ENCOUNTER 2018-04-17 16:13 | Inpatient (IN) | payer MEDICAID ==
[~2018-04-17] VITALS: Ht 160 cm; Wt 136.6 kg
--- NOTE | 2018-04-17 16:51 | NUR ---
PT BIB AMBULANCE FROM [facility] AFTER FOLLOW UP TODAY. PT STATES SHE WAS AT [facility] FOR "WATER RETENTION AND CONFUSION" FOR 16 DAYS. PT STATES CLINIC WAS CONCERNED ABOUT HER OXYGEN LEVEL AND SENT HER HERE. EXTENSIVE MEDICAL HISTORY WITH MANY COMORBIDITIES. CONNECTED TO MONITORS. VSS. CALL LIGHT WITHIN REACH. NO NEEDS AT THIS TIME.
--- NOTE | 2018-04-17 17:00 | NUR ---
AFTER COMPLETING PHYSICAL ASSESSMENT, PT STATED THAT SHE WASN'T FEELING WELL. AT THE SAME TIME, PT BEGAN TO SLUMP BACK AGAINST THE BED AND WAS UNRESPONSIVE TO HER NAME FOR APPROXIMATELY 15 SECONDS. PT CONTINUED TO TRACK WITH EYES, BUT WAS UNABLE TO SPEAK. PT WAS EASED TO LYING POSITION IN BED AND CONNECTED TO THE [facility]. VS REMAINED STABLE THROUGHOUT THE EVENT. MD WAS NOTIFIED AND BROUGHT TO BEDSIDE FOR ASSESSMENT. NO INTERVENTIONS WERE NEEDED FOR PT TO THEN RECOVER. PT WAS ABLE TO THEN SPEAK APPROPRIATELY. IV WAS ESTABLISHED. AWAITING ORDERS.
[2018-04-17 17:11] LABS: ALANINE AMINOTRANSFERASE 25 U/L (12-78); ALBUMIN 2.2 g/dL (3.4-5.0); ANION GAP 8 mmol/L (5-15); CALCIUM 8.2 mg/dL (8.5-10.1); CHLORIDE 102 mmol/L (98-107); CREATININE 0.72 mg/dL (0.55-1.02)
[2018-04-17 17:13] LABS: ALKALINE PHOSPHATASE 146 U/L (45-117); BILIRUBIN,TOTAL 9.8 mg/dL (0.2-1.0); TOTAL PROTEIN 7.3 g/dL (6.4-8.2)
[2018-04-17 17:25] LABS: MEAN CORPUSCULAR HEMOGLOBIN 37.4 pg (27.0-34.8); MEAN CORPUSCULAR HGB CONC 33.6 g/dL (32.4-35.8); MEAN CORPUSCULAR VOLUME 111.3 fL (80-100); MEAN PLATELET VOLUME 7.8 fL (7.4-10.4); PLATELET COUNT 133 x10^3/uL (130-400); RED BLOOD COUNT 2.65 x10^6/uL (3.82-5.3); RED CELL DISTRIBUTION WIDTH 26.4 % (9.6-15.2)
[2018-04-17 17:27] LABS: MD YES
[2018-04-17 17:31] LABS: BAND#(MANUAL) 0.22 x10^3/uL; BANDS%(MANUAL) 5 % (0-7); EOS#(MANUAL) 0.22 x10^3/uL (0.0-0.4); EOS% (MANUAL) 5 % (1-7); LYMPH#(MANUAL) 1.32 x10^3/uL (1-3.4); LYMPHS% (MANUAL) 30 % (22-44); MONOS#(MANUAL) 0.31 x10^3/uL (0.3-2.7); MONOS% (MANUAL) 7 % (2-9); SEG#(MANUAL) 2.33 x10^3/uL (1.8-6.8); SEGS% (MANUAL) 53 % (42-75)
[2018-04-17 17:32] LABS: ANISOCYTOSIS 1+; POLYCHROMASIA 1+; SCHISTOCYTES 1+
[2018-04-17 17:33] LABS: <PLATELET ESTIMATE> ADEQUATE; <PLT MORPHOLOGY> NORMAL PLT MORPH
[2018-04-17 18:30] LABS: MICROSCOPIC NOT IND
[2018-04-17 18:35] LABS: CULTURE INDICATED? NO
[2018-04-17 20:43] VITALS: BP 110/68
[2018-04-17] MEDS ORDERED: OMNIPAQUE 350 MG/ML, 100ML BOTTLE ONE (22:33)
[2018-04-17] MEDS ORDERED: RIFA550T4 PO (23:25)
[2018-04-17] MEDS ORDERED: ALBU90AE INH (23:25)
[2018-04-17] MEDS ORDERED: FERR325T5 PO (23:25)
[2018-04-17] MEDS ORDERED: POTA10TA11 PO (23:25)
[2018-04-17] MEDS ORDERED: LEVE750T8 PO (23:25)
[2018-04-17] MEDS ORDERED: LEVO50TA5 PO (23:25)
[2018-04-17] MEDS ORDERED: LACT10PA3 PO (23:25)
[2018-04-17] MEDS ORDERED: FURO20TA3 PO (23:25)
[2018-04-17] MEDS ORDERED: SPIR50TA4 PO (23:25)
[2018-04-17] MEDS ORDERED: OMEP20CA14 PO (23:25)
[2018-04-17] MEDS ORDERED: GABA300C10 PO (23:25)
[2018-04-18] MEDS ORDERED: ALBUTEROL SULFATE 2.5 MG/3 ML NPPB PRN (01:00)
[2018-04-18] MEDS ORDERED: LORazepam 1MG TABLET PO PRN (01:00)
[2018-04-18] MEDS ORDERED: HYDROcodone/APAP 5/325 TABLET PO PRN (01:00)
[2018-04-18] MEDS ORDERED: LIDODERM 5% PATCH TD PRN (01:00)
[2018-04-18] MEDS ORDERED: ONDANSETRON 2MG/ML, 2ML IVPush PRN (01:00)
[2018-04-18] MEDS ORDERED: ACETAMINOPHEN 325 MG TABLET PO PRN (01:00)
[2018-04-18 02:00] VITALS: BP 92/50
[2018-04-18] MEDS ORDERED: OMEPRAZOLE 20 MG CAPSULE.DR PO SCH (06:00)
[2018-04-18] MEDS ORDERED: LEVOTHYROXINE 50 MCG TABLET PO SCH (06:00)
[2018-04-18] MEDS ORDERED: FUROSEMIDE 40 MG/4 ML IV SCH (07:30)
[2018-04-18] MEDS ORDERED: PANTOPRAZOLE 40 MG IV IVPush SCH (07:30)
[2018-04-18 08:00] VITALS: BP 104/59
[2018-04-18] MEDS ORDERED: LEVETIRACETAM 500 MG TABLET PO SCH (09:00)
[2018-04-18] MEDS ORDERED: LACTULOSE 20 GM/30 ML UDC PO SCH (09:00)
[2018-04-18] MEDS ORDERED: SPIRONOLACTONE 50 MG TABLET PO SCH (09:00)
[2018-04-18] MEDS ORDERED: RIFAXIMIN 550 MG TABLET PO SCH (09:00)
[2018-04-18] MEDS ORDERED: FERROUS SULFATE 325 MG TABLET PO SCH (09:00)
[2018-04-18] MEDS ORDERED: GABAPENTIN 300 MG CAPSULE PO SCH (21:00)
== END 2018-04-18 11:51 | disposition left against medical advice (07) | DRG 432 ==
LOC: ED 17:25 → EDIP 17:44 → 4WST 18:47
PROVIDERS: ADMIT Internal Medicine; ATTEND Internal Medicine
PROC: 0T9B70Z Drainage of Bladder with Drainage Device, Via Natural or Artificial Opening (ICD-10-PCS; principal; 2018-04-17)
DX: K70.40 Alcoholic hepatic failure without coma (principal); J96.21 Acute and chronic respiratory failure with hypoxia; K76.6 Portal hypertension; I50.9 Heart failure, unspecified; D53.9 Nutritional anemia, unspecified; D63.8 Anemia in other chronic diseases classified elsewhere; E11.9 Type 2 diabetes mellitus without complications; I11.0 Hypertensive heart disease with heart failure; I27.20 Pulmonary hypertension, unspecified; K70.10 Alcoholic hepatitis without ascites; K70.30 Alcoholic cirrhosis of liver without ascites; Z66 Do not resuscitate; Z87.01 Personal history of pneumonia (recurrent); Z87.891 Personal history of nicotine dependence; Z90.49 Acquired absence of other specified parts of digestive tract; Z53.21 Procedure and treatment not carried out due to patient leaving prior to being seen by health care provider
CPT/HCPCS: 36415; 71045; 74177; 80053; 81003; 82140; 83690; 83880; 85025; 99285; G0378; J1940; Q9967; C9113